=== PATIENT | female | born 1975 | race Caucasian/White ===

== ENCOUNTER 2021-03-20 10:19 | Emergency (ER) | payer BC, MEDICAID ==
[~2021-03-20] VITALS: Ht 162.6 cm; Wt 86.2 kg
[2021-03-20 10:38] VITALS: BP 188/90
[2021-03-20] MEDS ORDERED: cefTRIAXone SOD 1,000 MG VL IM ONE (11:00)
[2021-03-20] MEDS ORDERED: ACETAMINOPHEN 500 MG TAB PO ONE (11:15)
[2021-03-20 11:16] LABS: Urine Bacteria FEW /hpf (None Seen); Urine Blood 2+ /uL (Negative); Urine Mucus FEW (None Seen); Urine Specific Gravity 1.028 (1.001-1.035); Urine WBC 48 /hpf (0 - 5)
== END 2021-03-20 11:33 | disposition home or self-care (01) ==
LOC: ER 10:19
DX: N39.0 Urinary tract infection, site not specified (principal); I10 Essential (primary) hypertension; F17.210 Nicotine dependence, cigarettes, uncomplicated; Z90.89 Acquired absence of other organs; Z90.49 Acquired absence of other specified parts of digestive tract; Z88.2 Allergy status to sulfonamides
CPT/HCPCS: 81001; 81025; 96372; 99283; J0696

== ENCOUNTER 2021-04-07 13:52 | Emergency (ER) | payer BC ==
[~2021-04-07] VITALS: Ht 162.6 cm; Wt 88.5 kg
[2021-04-07 14:41] LABS: Basophils % (auto) 0.6 % (0.0-2.0); Eosinophils # (auto) 0.1 10 ^3/uL (0-0.8); Lymphocytes # (auto) 2.6 10 ^3/uL (0.4-5.4); Monocytes # (auto) 0.5 10 ^3/uL (0-1.3); Neutrophils # (auto) 4.9 10 ^3/uL (1.6-8.6); Nucleated Red Blood Cells % 0.1 %; White Blood Cell 8.1 10^3/uL (4.4-10.8)
[2021-04-07 14:43] LABS: Basophils # (auto) 0 10 ^3/uL (0-0.2); Eosinophils % (auto) 1.4 % (0.0-7.0); Hematocrit 38.4 % (36.0-46.0); Hemoglobin 12.9 g/dL (12.2-16.2); Lymphocytes % (auto) 31.5 % (10.0-50.0); Mean Corpuscular Hemoglobin 35.1 pg (28.0-32.0); Mean Corpuscular Hgb Conc. 33.7 g/dL (32.0-36.0); Mean Corpuscular Volume 104.2 fL (80.0-100.0); Monocytes % (auto) 5.7 % (0.0-12.0); Neutrophils % (auto) 60.8 % (37.0-80.0); Red Blood Cells 3.68 10^6/uL (4.0-5.20); Red Cell Distribution Width 15.2 % (11.8-14.3)
[2021-04-07 14:50] LABS: Albumin 3.6 g/dL (3.4-5.0); Calcium 8.7 mg/dL (8.5-10.1); Potassium 3.3 mmol/L (3.5-5.1)
[2021-04-07 15:03] LABS: BUN/Creatinine Ratio 15.5; Bilirubin, Total 0.8 mg/dL (0.2-1.0); Total Protein 7.3 g/dL (6.4-8.2)
[2021-04-07] MEDS ORDERED: POTASSIUM EFFERVESENT TAB 25 MEQ PO ONE (15:30)
[2021-04-07 16:00] VITALS: BP 128/86
== END 2021-04-07 16:21 | disposition home or self-care (01) ==
LOC: ER 13:52
DX: J06.9 Acute upper respiratory infection, unspecified (principal); R51.9 Headache, unspecified; I10 Essential (primary) hypertension; Z90.49 Acquired absence of other specified parts of digestive tract; Z90.89 Acquired absence of other organs; Z20.822 Contact with and (suspected) exposure to COVID-19
CPT/HCPCS: 36415; 70450; 71046; 80053; 84484; 85025; 87426; 93005

== ENCOUNTER 2021-04-11 11:34 | Inpatient (IN) | payer BC ==
[~2021-04-11] VITALS: Ht 152.4 cm; Wt 93.0 kg
[2021-04-11 13:38] LABS: Basophils # (auto) 0 10 ^3/uL (0-0.2); Eosinophils # (auto) 0 10 ^3/uL (0-0.8); Eosinophils % (auto) 0.2 % (0.0-7.0); Nucleated Red Blood Cells % 0.1 %
[2021-04-11 13:39] LABS: Basophils % (auto) 0.2 % (0.0-2.0); Hemoglobin 13.5 g/dL (12.2-16.2); Lymphocytes # (auto) 2.2 10 ^3/uL (0.4-5.4); Mean Corpuscular Hemoglobin 35.3 pg (28.0-32.0); Mean Corpuscular Hgb Conc. 33.8 g/dL (32.0-36.0); Mean Corpuscular Volume 104.4 fL (80.0-100.0); Neutrophils # (auto) 7.4 10 ^3/uL (1.6-8.6); Neutrophils % (auto) 69.6 % (37.0-80.0); Red Blood Cells 3.83 10^6/uL (4.0-5.20); White Blood Cell 10.6 10^3/uL (4.4-10.8)
[2021-04-11 14:12] LABS: Albumin 3.9 g/dL (3.4-5.0); Calcium 8.9 mg/dL (8.5-10.1); Magnesium 2.4 mg/dL (1.6-2.6); Potassium 3.5 mmol/L (3.5-5.1)
[2021-04-11 14:18] LABS: BUN/Creatinine Ratio 20.3; Bilirubin, Total 0.6 mg/dL (0.2-1.0); Total Protein 7.5 g/dL (6.4-8.2)
[2021-04-11 15:25] LABS: Urine Bacteria NONE SEEN /hpf (None Seen); Urine Blood TRACE /uL (Negative); Urine Mucus FEW (None Seen); Urine Specific Gravity 1.022 (1.001-1.035); Urine WBC 2 /hpf (0 - 5)
[2021-04-11] MEDS ORDERED: IOHEXOL 350 MG/ML 100ML IJ ONE ×2 (19:46→20:29)
[2021-04-12] MEDS ORDERED: ONDANSETRON HCL 4 MG/2 ML VIAL IV PRN
[2021-04-12] MEDS ORDERED: MORPHINE SULFATE INJECTION 2 MG/ML SYRG IV PRN
[2021-04-12] MEDS ORDERED: HYDROcodone-ACET 5/325MG TAB PO PRN
[2021-04-12] MEDS ORDERED: hydrALAZINE HCL 10 MG TAB PO PRN
[2021-04-12] MEDS ORDERED: ACETAMINOPHEN 325 MG TAB PO PRN
[2021-04-12 05:33] LABS: Eosinophils # (auto) 0.1 10 ^3/uL (0-0.8); Hemoglobin 12.8 g/dL (12.2-16.2); Lymphocytes # (auto) 2.7 10 ^3/uL (0.4-5.4); Monocytes # (auto) 0.6 10 ^3/uL (0-1.3); Nucleated Red Blood Cells % 0.1 %
[2021-04-12 05:35] LABS: Basophils # (auto) 0.1 10 ^3/uL (0-0.2); Basophils % (auto) 0.8 % (0.0-2.0); Eosinophils % (auto) 1.2 % (0.0-7.0); Hematocrit 37.6 % (36.0-46.0); Lymphocytes % (auto) 31.6 % (10.0-50.0); Mean Corpuscular Hemoglobin 34.9 pg (28.0-32.0); Mean Corpuscular Volume 102.8 fL (80.0-100.0); Monocytes % (auto) 6.9 % (0.0-12.0); Neutrophils % (auto) 59.5 % (37.0-80.0); Red Blood Cells 3.65 10^6/uL (4.0-5.20); Red Cell Distribution Width 15.3 % (11.8-14.3); White Blood Cell 8.4 10^3/uL (4.4-10.8)
[2021-04-12 05:57] LABS: Calcium 8.3 mg/dL (8.5-10.1); Magnesium 2.5 mg/dL (1.6-2.6); Potassium 3.2 mmol/L (3.5-5.1)
[2021-04-12 06:00] LABS: BUN/Creatinine Ratio 22.2
[2021-04-12] MEDS ORDERED: hydrALAZINE HCL 20 MG/ML VL IV PRN (06:45)
[2021-04-12] MEDS ORDERED: LEVOTHYROXINE SODIUM 50 MCG TAB PO SCH (07:00)
[2021-04-12] MEDS: ATENOLOL 50 MG TAB PO SCH ×2 (08:45→09:44)
[2021-04-12] MEDS ORDERED: BISO5TAB44 PO (09:05)
[2021-04-12] MEDS ORDERED: LEVO150T10 PO (09:05)
[2021-04-12 09:33] VITALS: BP 170/101
[2021-04-12 13:00] VITALS: BP 136/89
[2021-04-12] MEDS ORDERED: LORazepam 2MG/ML-1ML VIAL IV PRN (16:30)
[2021-04-12] MEDS ORDERED: FOLIC ACID 1 MG, MULTIPLE VITAMIN 10 ML, MAGNESIUM SULF SDV 50% 8 MEQ, THIAMINE INJ 100... INJ ONE ×5 (16:30)
[2021-04-12] MEDS ORDERED: POTASSIUM CHL 20 Meq TABLET PO ONE (16:30)
[2021-04-12] MEDS ORDERED: POTASSIUM CHLORIDE 20 MEQ, LIDOCAINE 1% (LOCAL ANESTH.) 2 ML in SODIUM CHL 0.9% 100 ML IV ONE (16:30)
[2021-04-12] MEDS ORDERED: ASPI1CHW15 PO (16:35)
[2021-04-12] MEDS ORDERED: THIA100T10 PO (16:35)
[2021-04-12] MEDS ORDERED: GAB100C PO (16:35)
[2021-04-12] MEDS ORDERED: AML5T PO (16:35)
[2021-04-12] MEDS ORDERED: ATOR20TA50 PO (16:35)
[2021-04-12] MEDS ORDERED: FOLI1TAB6 PO (16:35)
[2021-04-12] MEDS ORDERED: THIAMINE 100mg/ml INJ (200mg/2ml VIAL) IV SCH (17:00)
[2021-04-12 17:09] VITALS: BP 148/93
[2021-04-12 20:00] VITALS: BP 129/78
[2021-04-12] MEDS: GABAPENTIN 100 MG CAP PO SCH (21:52)
[2021-04-12 22:00] VITALS: BP 129/78
[2021-04-12] MEDS ORDERED: ATORVASTATIN 20 MG TAB PO SCH (22:00)
[2021-04-13 05:00] VITALS: BP 131/99
[2021-04-13] MEDS: GABAPENTIN 100 MG CAP PO SCH ×2 (05:21→14:00)
[2021-04-13 06:13] LABS: Albumin 3.2 g/dL (3.4-5.0)
[2021-04-13 06:17] LABS: Bilirubin, Direct 0.4 mg/dL (0-0.2); Bilirubin, Total 0.9 mg/dL (0.2-1.0); Total Protein 5.9 g/dL (6.4-8.2)
[2021-04-13] MEDS ORDERED: LEVOTHYROXINE SODIUM 50 MCG TAB PO SCH (07:00)
[2021-04-13 08:47] VITALS: BP 142/92
[2021-04-13] MEDS ORDERED: THIAMINE HCL 100 MG TAB PO SCH (10:00)
[2021-04-13] MEDS ORDERED: FOLIC ACID 1 MG TAB PO SCH (10:00)
[2021-04-13] MEDS ORDERED: ASPirin 81 mg TAB PO SCH (10:00)
[2021-04-13] MEDS ORDERED: amLODIPine BESYLATE 5 MG TAB PO SCH (10:00)
[2021-04-13 13:30] VITALS: BP 145/90
[2021-04-13 13:36] LABS: Hepatitis A Ab IgM Negative
[2021-04-13 14:05] LABS: Hepatitis B Core IgM Negative; Hepatitis C Antibody Negative (Negative)
[2021-04-13 15:10] VITALS: BP 149/90
[2021-04-13 16:48] VITALS: BP 144/87
== END 2021-04-13 19:06 | disposition home or self-care (01) | DRG 316 ==
LOC: ER 11:34 → TELE 23:47 → TELE-WESTW 04-12 07:51
PROVIDERS: ADMIT Nurse Practitioner Family; ATTEND Internal Medicine
DX: I27.20 Pulmonary hypertension, unspecified (principal); E03.9 Hypothyroidism, unspecified; E87.6 Hypokalemia; F10.10 Alcohol abuse, uncomplicated; E66.01 Morbid (severe) obesity due to excess calories; E78.5 Hyperlipidemia, unspecified; F17.200 Nicotine dependence, unspecified, uncomplicated; R74.8 Abnormal levels of other serum enzymes; R79.89 Other specified abnormal findings of blood chemistry; K76.0 Fatty (change of) liver, not elsewhere classified; I51.7 Cardiomegaly; Z20.822 Contact with and (suspected) exposure to COVID-19; F41.9 Anxiety disorder, unspecified; F32.A Depression, unspecified; R29.6 Repeated falls; R07.89 Other chest pain; R55 Syncope and collapse; I10 Essential (primary) hypertension; Z80.0 Family history of malignant neoplasm of digestive organs; Z82.49 Family history of ischemic heart disease and other diseases of the circulatory system; Z68.39 Body mass index [BMI] 39.0-39.9, adult; Z83.3 Family history of diabetes mellitus; Z87.440 Personal history of urinary (tract) infections; Z87.442 Personal history of urinary calculi; Z88.2 Allergy status to sulfonamides; Z90.49 Acquired absence of other specified parts of digestive tract
CPT/HCPCS: 36415; 70450; 70551; 71046; 71275; 76705; 80048; 80053; 80061; 80074; 80076; 81001; 81025; 83735; 83880; 84443; 84484; 85025; 87426; 93005; 93306; 93886; 95819; 96374; 96375; 97163; G0378; J2001; J2405

== ENCOUNTER 2023-02-21 08:13 | Emergency (ER) | payer BC ==
[~2023-02-21] VITALS: Ht 165.1 cm; Wt 61.3 kg
[~2023-02-21 08:13] MED LIST: AML5T PO; ASPI-736 PO; ATOR20TA50 PO; FOLI-119 PO; GAB100C PO; LEVO150T10 PO; THIA100T10 PO
[2023-02-21] MEDS: traMADol HCL 50 MG TAB PO ONE ×2 (09:31→09:35)
[2023-02-21] MEDS ORDERED: TRAM50TA2 PO (09:53)
[2023-02-21 10:03] VITALS: BP 136/82; PULSE 98; RESP 18; TEMP 98.6; O2SAT 99
[2023-02-21] MEDS ORDERED: ACE3T PO (10:11)
== END 2023-02-21 10:18 | disposition home or self-care (01) ==
LOC: EDBD 08:13 → ER 08:13
DX: S16.1XXA Strain of muscle, fascia and tendon at neck level, initial encounter (principal); S09.90XA Unspecified injury of head, initial encounter; F12.10 Cannabis abuse, uncomplicated; I10 Essential (primary) hypertension; Z90.49 Acquired absence of other specified parts of digestive tract; Z90.89 Acquired absence of other organs; Z88.2 Allergy status to sulfonamides; V43.52XA Car driver injured in collision with other type car in traffic accident, initial encounter; Y93.89 Activity, other specified; Y92.410 Unspecified street and highway as the place of occurrence of the external cause; Y99.8 Other external cause status
CPT/HCPCS: 70450; 72125